=== PATIENT | female | born 1960 | race Caucasian/White ===

== ENCOUNTER 2020-01-13 08:12 | Outpatient (REF) | payer OTHER, SELFPAY ==
[2020-01-13 10:52] LABS: Cholesterol 212 mg/dL; Glucose Fasting 93 mg/dL (60-99); HDL Cholesterol 46 mg/dL; LDL Cholesterol Calculated 131 mg/dl; Triglycerides 176 mg/dL
== END 2020-01-13 08:13 | disposition home or self-care (01) ==
LOC: HO.10HDL 08:12
PROVIDERS: Visit Provider Family Medicine
DX: E78.00 Pure hypercholesterolemia, unspecified (principal)
CPT/HCPCS: 80061; 82947

== ENCOUNTER 2020-03-11 08:37 | Outpatient (REF) | payer OTHER, SELFPAY ==
--- NOTE | 2020-03-11 08:42 | MM_ITS ---
EXAMINATION: MM SCREENING DIGITAL BREAST TOMOSYNTHESIS, BILATERAL CLINICAL INFORMATION: Screening. Asymptomatic. The lifetime risk of breast cancer based on the Tyrer-Cuzick Model is 4%. COMPARISON: Mammography: 10/30/2018, 10/28/2014 TECHNIQUE: Digital breast tomosynthesis is performed in both the craniocaudal and mediolateral oblique views along with computer-aided detection (CAD). Synthesized 2D images are generated from the tomosynthesis. FINDINGS: The breasts are heterogeneously dense, which may obscure small masses (ACR BI-RADS breast composition Category c). Fibronodular parenchymal pattern is similar to prior studies. There is no interval mass or architectural abnormality. No abnormal calcifications. The axilla and skin contours are unremarkable. There are no significant changes from prior exams. MM/MM tomosynthesis screening BI IMPRESSION: No mammographic evidence of malignancy. ASSESSMENT: BI-RADS 1: Negative RECOMMENDATION: Routine annual mammography screening. This patient's information was entered into a reminder system with a target due date for their next mammogram.
== END 2020-03-11 08:38 | disposition home or self-care (01) ==
LOC: HO.MAMMO 08:37
PROVIDERS: PCP Family Medicine; Visit Provider Family Medicine
DX: Z12.31 Encounter for screening mammogram for malignant neoplasm of breast (principal)
CPT/HCPCS: 77063; 77067

== ENCOUNTER 2020-10-05 06:05 | Outpatient (REF) | payer OTHER, SELFPAY ==
[2020-10-05 07:52] LABS: Anion Gap 12 (12-20); Blood Urea Nitrogen 11 mg/dL (9-16); Carbon Dioxide 26 mmol/L (22-29); Chloride 108 mmol/L (96-108); Cholesterol 206 mg/dL; Estimated Glomerular Filt Rate > 60; HDL Cholesterol 42 mg/dL; LDL Cholesterol Calculated 133 mg/dl; Potassium 4.5 mmol/L (3.3-5.1); Sodium 141 mmol/L (135-145); Triglycerides 155 mg/dL
== END 2020-10-05 06:06 | disposition home or self-care (01) ==
LOC: HO.LAB 06:05
PROVIDERS: PCP Family Medicine; Visit Provider Family Medicine
DX: I10 Essential (primary) hypertension (principal); E78.00 Pure hypercholesterolemia, unspecified
CPT/HCPCS: 36415; 80051; 80061; 82565; 84520

== ENCOUNTER 2021-05-03 07:49 | Outpatient (REF) | payer OTHER, SELFPAY ==
[2021-05-03 10:29] LABS: Anion Gap 15 (12-20); Blood Urea Nitrogen 14 mg/dL (9-16); Carbon Dioxide 23 mmol/L (22-29); Chloride 107 mmol/L (96-108); Estimated Glomerular Filt Rate > 60; Potassium 4.3 mmol/L (3.3-5.1); Sodium 141 mmol/L (135-145)
== END 2021-05-03 07:50 | disposition home or self-care (01) ==
LOC: HO.10HDL 07:49
PROVIDERS: Visit Provider Family Medicine
DX: I10 Essential (primary) hypertension (principal)
CPT/HCPCS: 36415; 80051; 82565; 84520

== ENCOUNTER 2021-05-21 07:22 | Outpatient (REF) | payer OTHER, SELFPAY ==
--- NOTE | ~2021-05-21 | MM_ITS ---
EXAMINATION: MM SCREENING DIGITAL BREAST TOMOSYNTHESIS, BILATERAL CLINICAL INFORMATION: Screening. Asymptomatic. The lifetime risk of breast cancer based on the Tyrer-Cuzick Model is 5%. COMPARISON: Mammography: 03/11/2020, 10/30/2018, 10/28/2014 TECHNIQUE: Digital breast tomosynthesis is performed in both the craniocaudal and mediolateral oblique views along with computer-aided detection (CAD). Synthesized 2D images are generated from the tomosynthesis. FINDINGS: The breasts are heterogeneously dense, which may obscure small masses (ACR BI-RADS breast composition Category c). There are no significant masses, abnormal calcifications, or other abnormalities. There is a fibronodular parenchymal pattern similar to prior studies. No developing density or interval architectural changes. No significant changes from prior studies. MM/MM tomosynthesis screening BI IMPRESSION: No mammographic evidence of malignancy. ASSESSMENT: BI-RADS 1: Negative RECOMMENDATION: Routine annual mammography screening. This patient's information was entered into a reminder system with a target due date for their next mammogram.
== END 2021-05-21 07:23 | disposition home or self-care (01) ==
LOC: HO.MAMMO 07:22
PROVIDERS: Visit Provider Family Medicine
DX: Z12.31 Encounter for screening mammogram for malignant neoplasm of breast (principal)
CPT/HCPCS: 77063; 77067

== ENCOUNTER 2021-06-30 06:22 | Outpatient (REF) | payer OTHER, SELFPAY ==
--- NOTE | ~2021-06-30 | XR_ITS ---
EXAMINATION: XR HIP, RIGHT CLINICAL INFORMATION: Right hip pain COMPARISON: None TECHNIQUE: Two views of the right hip. FINDINGS: Bone alignment is normal. No fracture or dislocation is seen. The the joint space is normal. Soft tissues are normal. XR/XR hip RT min 2V IMPRESSION: Normal right hip.
== END 2021-06-30 06:23 | disposition home or self-care (01) ==
LOC: HO.XRAY 06:22
PROVIDERS: PCP Family Medicine; Visit Provider Family Medicine
DX: M25.551 Pain in right hip (principal)
CPT/HCPCS: 73502

== ENCOUNTER 2021-09-08 10:30 | Outpatient (REF) | payer OTHER, SELFPAY ==
[2021-09-08 11:19] LABS: Appearance Urine HAZY; Color Urine STRAW; Glucose Urine UA NEG (NEG); Leukocyte Esterase Urine 3+ (NEG); Nitrite Urine NEG (NEG); Specific Gravity - Urine <= 1.005 (1.005-1.025); Urine Blood 3+ (NEG); Urine Ketones NEG (NEG); Urine Protein NEG (NEG-TRACE)
[2021-09-08 11:30] LABS: Bacteria Urine 2+ /LPF; Squamous Epithelial Cell Urine 1+ /LPF
[2021-09-08 11:31] LABS: Mucus Urine TRACE /LPF
== END 2021-09-08 10:31 | disposition home or self-care (01) ==
LOC: HO.LAB 10:30
PROVIDERS: PCP Family Medicine; Visit Provider Family Medicine
DX: R30.9 Painful micturition, unspecified (principal)
CPT/HCPCS: 81001; 87086; 87088; 87186

== ENCOUNTER 2021-10-31 06:25 | Outpatient (REF) | payer OTHER, SELFPAY ==
[2021-10-31 08:40] LABS: Anion Gap 15 (12-20); Blood Urea Nitrogen 15 mg/dL (9-16); Carbon Dioxide 27 mmol/L (22-29); Chloride 103 mmol/L (96-108); Estimated Glomerular Filt Rate > 60; Potassium 4.1 mmol/L (3.3-5.1); Sodium 141 mmol/L (135-145)
== END 2021-10-31 06:26 | disposition home or self-care (01) ==
LOC: HO.LAB 06:25
PROVIDERS: PCP Family Medicine; Visit Provider Family Medicine
DX: I10 Essential (primary) hypertension (principal)
CPT/HCPCS: 36415; 80051; 82565; 84520

== ENCOUNTER 2022-01-17 06:24 | Outpatient (REF) | payer OTHER, SELFPAY ==
--- NOTE | ~2022-01-17 | XR_ITS ---
EXAMINATION: XR LUMBOSACRAL SPINE CLINICAL INFORMATION: Right sciatica. COMPARISON: None. TECHNIQUE: Three views of the lumbosacral spine. FINDINGS: There is normal lumbar lordosis. The vertebral heights, alignment and disc heights are normal. No visible acute fracture, dislocation or subluxation seen. There is a right L5-S1 facet joint arthropathy. There is no lytic process. The paravertebral soft tissues are normal. XR/XR lumbar spine 2-3V IMPRESSION: Right L5-S1 facet joint arthropathy. No visible acute fracture, dislocation or lytic process seen.
== END 2022-01-17 06:25 | disposition home or self-care (01) ==
LOC: HO.XRAY 06:24
PROVIDERS: PCP Family Medicine; Visit Provider Family Medicine
DX: M54.31 Sciatica, right side (principal)
CPT/HCPCS: 72100

== ENCOUNTER 2022-03-07 07:43 | Outpatient (REF) | payer OTHER, SELFPAY ==
--- NOTE | 2022-03-07 | PFT_ITS ---
Forced vital capacity 77%, FEV1 75%, FEV1 over FVC ratio is 75. FEF 25/75 is 62% and MVV 70%. Post bronchodilator therapy, there is a significant improvement in FEF25/75. Total lung capacity 95%. Residual volume 114%. Diffusion capacity 69%. CONCLUSION: There is a very mild degree of small airway obstructive disorder, which improves after bronchodilator therapy to normal level. This finding indicates that patient may have mild bronchial asthma. For this, clinical correlation is recommended. MD ARETHA Larry/NAYLA / [phone]
== END 2022-03-07 07:44 | disposition home or self-care (01) ==
LOC: HO.RESP 07:43
PROVIDERS: PCP Family Medicine; Visit Provider Family Medicine
DX: J44.9 Chronic obstructive pulmonary disease, unspecified (principal)
CPT/HCPCS: 94060; 94727; 94729

== ENCOUNTER 2022-05-26 14:29 | Outpatient (REF) | payer OTHER, SELFPAY ==
--- NOTE | ~2022-05-26 | CT_ITS ---
EXAMINATION: LUNG CANCER SCREENING CT CHEST WITHOUT CONTRAST CLINICAL INFORMATION: Former smoker with 45 pack year history, quit 1 year ago COMPARISON: None TECHNIQUE: Multidetector volumetric CT imaging of the chest was obtained noncontrast using low dose screening CT technique. Axial thin section 0.625 mm reformations in soft tissue and lung windows were obtained. Sagittal and coronal reformations were obtained. Axial MIP images were also created and reviewed. This CT examination was performed using dose optimization techniques as appropriate, variously including the following: *Automated exposure control *Adjustment of mA and/or kV according to patient size (this includes techniques or standardized protocols for targeted exams where dose is matched to indication/reason for exam; i.e. extremities or head) *Use of iterative reconstruction technique TOTAL EXAM DLP: 33 mGy-cm. FINDINGS: PULMONARY NODULES: No suspicious pulmonary nodules. There are a few scattered pulmonary nodules measuring less than 4 mm (see rutherford images). LUNGS / PLEURA: Moderate centrilobular paraseptal emphysema. Diffuse moderate bronchial thickening and mild cylindrical bronchiectasis. Scattered endobronchial secretions predominating within the dependent segments of the lower lobes bilaterally. No pleural effusion or pneumothorax. MEDIASTINUM / IZAIAH: Heart normal in size without pericardial effusion. Great vessels normal caliber. No lymphadenopathy. Coronary calcifications present. Imaged thyroid gland unremarkable. CHEST WALL / AXILLA: Unremarkable. UPPER ABDOMEN: Included portions grossly unremarkable allowing for limitations in technique. OSSEOUS STRUCTURES: No acute or suspicious osseous abnormalities. CT/CT lung screening IMPRESSION: * No evidence of pulmonary malignancy. * There are no pulmonary nodules that meet criteria for short interval follow-up at this time. * Moderate emphysema and bronchitis which may be chronic in this patient. ASSESSMENT: Lung RADS category: 2. Benign appearance or behavior. Nodules with a very low likelihood of becoming a clinically active cancer due to size or lack of growth. Continue annual screening with low-dose CT in 12 months. Probability of malignancy less than 1%. INCIDENTAL FINDINGS (S CATEGORY): None. RECOMMENDATION: Follow up low dose CT chest in 1 year.
== END 2022-05-26 14:30 | disposition home or self-care (01) ==
LOC: HO.CT 14:29
PROVIDERS: PCP Family Medicine; Visit Provider Physician Assistant Medical
DX: Z12.2 Encounter for screening for malignant neoplasm of respiratory organs (principal); Z87.891 Personal history of nicotine dependence
CPT/HCPCS: 71271; G0296

== ENCOUNTER 2022-06-02 07:40 | Outpatient (REF) | payer OTHER, SELFPAY ==
[2022-06-02 08:14] LABS: COVID-19 Test Negative (Negative); IDNOW Serial# 08D9AD1C
== END 2022-06-02 07:41 | disposition home or self-care (01) ==
LOC: HO.LAB 07:40
PROVIDERS: PCP Family Medicine; Visit Provider Internal Medicine
DX: Z20.822 Contact with and (suspected) exposure to COVID-19 (principal)
CPT/HCPCS: 87635; C9803

== ENCOUNTER 2022-06-03 07:19 | Outpatient (REF) | payer OTHER, SELFPAY ==
--- NOTE | ~2022-06-03 | MM_ITS ---
EXAMINATION: MM SCREENING DIGITAL BREAST TOMOSYNTHESIS, BILATERAL CLINICAL INFORMATION: Screening. Asymptomatic. The lifetime risk of breast cancer based on the Tyrer-Cuzick Model is 5%. COMPARISON: Mammography: 05/21/2021, 03/11/2020, 10/30/2018 TECHNIQUE: Digital breast tomosynthesis is performed in both the craniocaudal and mediolateral oblique views along with computer-aided detection (CAD). Synthesized 2D images are generated from the tomosynthesis. Additional exaggerated left CC view is provided. FINDINGS: The breasts are heterogeneously dense, which may obscure small masses (ACR BI-RADS breast composition Category c). There is fibronodular parenchymal pattern. No significant mass or architectural abnormality or developing density. No abnormal calcifications. The axilla and skin contours are unremarkable. No significant changes from prior studies. MM/MM tomosynthesis screening BI IMPRESSION: No mammographic evidence of malignancy. ASSESSMENT: BI-RADS 2: Benign RECOMMENDATION: Routine annual mammography screening. This patient's information was entered into a reminder system with a target due date for their next mammogram.
[2022-06-03 09:00] LABS: Anion Gap 16 (12-20); Blood Urea Nitrogen 11 mg/dL (9-16); Carbon Dioxide 24 mmol/L (22-29); Chloride 108 mmol/L (96-108); Estimated Glomerular Filt Rate > 60; Potassium 4.1 mmol/L (3.3-5.1); Sodium 144 mmol/L (135-145)
== END 2022-06-03 07:20 | disposition home or self-care (01) ==
LOC: HO.MAMMO 07:19
PROVIDERS: Visit Provider Family Medicine
DX: Z12.31 Encounter for screening mammogram for malignant neoplasm of breast (principal); I10 Essential (primary) hypertension
CPT/HCPCS: 36415; 77063; 77067; 80051; 82565; 84520

== ENCOUNTER 2023-04-14 08:00 | Outpatient (REF) | payer OTHER, SELFPAY ==
[2023-04-14 10:10] LABS: Anion Gap 12 (12-20); Blood Urea Nitrogen 17 mg/dL (9-16); Carbon Dioxide 25 mmol/L (22-29); Chloride 108 mmol/L (96-108); Estimated Glomerular Filt Rate > 60; Potassium 4.4 mmol/L (3.3-5.1); Sodium 141 mmol/L (135-145)
== END 2023-04-14 08:01 | disposition home or self-care (01) ==
LOC: HO.LAB 08:00
PROVIDERS: PCP Family Medicine; Visit Provider Family Medicine
DX: I10 Essential (primary) hypertension (principal)
CPT/HCPCS: 36415; 80051; 82565; 84520

== ENCOUNTER 2023-06-09 07:28 | Outpatient (REF) | payer OTHER, SELFPAY | END 2023-06-09 07:29 | disposition home or self-care (01) | LOC: HO.MAMMO 07:28 | PROVIDERS: PCP Family Medicine; Visit Provider Family Medicine | DX: Z12.31 Encounter for screening mammogram for malignant neoplasm of breast (principal) | CPT/HCPCS: 77063; 77067 ==

== ENCOUNTER → 2023-06-09 07:45 | Outpatient (BNV) | payer OTHER, SELFPAY | PROVIDERS: PCP Family Medicine; Visit Provider Radiology Diagnostic Radiology | DX: Z12.31 Encounter for screening mammogram for malignant neoplasm of breast (principal) | CPT/HCPCS: 77063; 77067 ==

== ENCOUNTER 2023-09-04 08:55 | Outpatient (AMB) | payer OTHER, SELFPAY ==
--- NOTE | 2023-09-04 08:58 | MHC.OFFVIS ---
Vital Signs 09/04/23 09:01 Height 5 ft 5 in Weight 129 lb BMI 21.5 BP 166/77 H Blood Pressure Location Rt brachial Position Sitting Pulse 86 Intake Visit Reasons: groin hernia Intake Note: Patient referred by pcp Dr. Mahmood for groin hernia X3m. Patient c/o: denies pain or discomfort. Has noticed bulging on LLQ. Box Office Attendant Required: No Accompanied by: Self / Same As Patient Allergies No Known Allergies Allergy (Unverified 09/04/23 09:03) HPI Comments Details: Patient presents for evaluation of right groin swelling which he has had for a proximally 3 months time. His increasing in size, become more symptomatic. Patient does moderate lifting at her place of employment. She has no other GI issues or complaints. She has tolerating a diet. She is regular bowel habits. Her activities are moderately limited because of this hernia. Chart was reviewed and patient evaluated [facility] Medical History Hypertension Personal history of nicotine dependence Surgical History History of tonsillectomy History of repair of right rotator cuff History of colonoscopy Social History Alcohol intake: current Alcohol intake frequency: a few times a month Patient Tobacco Use Status: Former Tobacco user Years Smoked: (former smoker - onset 17yo, 1ppd x 43yrs, 40pyh - quit 2020) Physical Exam Vital Signs: Last Vital Signs Pulse 86 09/04/23 09:01 BP 166/77 H 09/04/23 09:01 BMI result Body Mass Index 21.5 Chest Other: Chest breath sounds bilaterally, HS 1 in 2 GI Other: Patient was examined both supine and standing with Valsalva. Left groin negative. Abdomen benign. Moderately sized reducible right femoral hernia. No obvious inguinal hernia demonstrated. Assessment & Plan Assessment & Plan (1) Right groin hernia: Code(s): K40.90 - Unilateral inguinal hernia, without obstruction or gangrene, not specified as recurrent Category: Surgical Plan Risks, benefits, and alternatives of open right femoral hernia repair with mesh were reviewed with the patient and included but not limited to bleeding, infection, recurrence , numbness, pain, scarring and the patient wishes to proceed. All questions answered. Arrangements were made for this. Coding Level of Care Code New Pt Level 5 (40504) Diagnoses Right groin hernia K40.90
[2023-09-04 09:01] VITALS: BP 166/77; PULSE 86; BMI 21.5
== END 2023-09-04 09:13 | disposition home or self-care (01) ==
PROVIDERS: PCP Family Medicine; Visit Provider Surgery
DX: K40.90 Unilateral inguinal hernia, without obstruction or gangrene, not specified as recurrent (principal)
CPT/HCPCS: 99204

== ENCOUNTER → 2023-09-04 08:55 | Outpatient (BNVA) | payer OTHER, SELFPAY | PROVIDERS: PCP Family Medicine; Visit Provider Surgery ==

== ENCOUNTER 2023-09-05 09:43 | Outpatient (REF) | payer OTHER, SELFPAY ==
--- NOTE | ~2023-09-05 | US_ITS ---
EXAMINATION: US EXTRACRANIAL CAROTID DUPLEX, BILATERAL CLINICAL INFORMATION: Carotid bruit COMPARISON: None available. TECHNIQUE: Real-time ultrasound and Doppler techniques (integrating B-mode 2-D vascular images, Doppler spectral analysis and color-flow Doppler imaging) were utilized to interrogate the extracranial carotid arteries, the vertebral arteries and proximal subclavian arteries bilaterally. The degree of stenosis is determined by criteria similar to NASCET. FINDINGS: Right Side: 1. There is no significant atherosclerotic plaque seen in the bifurcation/proximal ICA region. 2. The common carotid artery PSV proximally is 84 cm/s and distally 56 cm/s. 3. The proximal internal carotid artery velocities are 77 cm/s systolic and 15 cm/s diastolic. 4. The proximal external carotid artery PSV is 77 cm/s. 5. The vertebral artery shows antegrade flow. 6. The subclavian artery waveforms are normal. Left Side: 1. There is mild atherosclerotic plaque seen in the bifurcation/proximal ICA region. 2. The common carotid artery PSV proximally is 127 cm/s and distally 64 cm/s. 3. The proximal internal carotid artery velocities are 120 cm/s systolic and 33 cm/s diastolic. 4. The proximal external carotid artery PSV is 72 cm/s. 5. The vertebral artery shows antegrade flow. 6. The subclavian artery waveforms are normal. US/US carotid duplex BI IMPRESSION: 1. RIGHT: Normal right internal carotid artery without atherosclerotic plaque or hemodynamically significant stenosis. 2. LEFT: Minimal, non-hemodynamically significant stenosis of the proximal left internal carotid artery corresponding to a 0-49% stenosis by velocity criteria.
== END 2023-09-05 09:44 | disposition home or self-care (01) ==
LOC: HO.US 09:43
PROVIDERS: PCP Family Medicine; Visit Provider Family Medicine
DX: R09.89 Other specified symptoms and signs involving the circulatory and respiratory systems (principal)
CPT/HCPCS: 93880

== ENCOUNTER 2023-10-18 08:53 | Day surgery (SDC) | payer OTHER, SELFPAY ==
[2023-10-16 07:14] VITALS: BMI 21.5
--- NOTE | 2023-10-17 17:57 | MHC.SHP ---
Pre-Procedural Eval Section A - 24 Hr Update-Section A only Date of Service: 10/18/23 The patient is an INPATIENT: No Changes since office visit: No Cold of Flu in the past 2 weeks, No New Medical Problems, No Changes in Medication and No Patient answered all questions Section B - Complete if H&P > 30 days Chief Complaint: Unilateral inguinal hernia, without obstruction or Allergies: Allergies Allergy/AdvReac Type Severity Reaction Status Date / Time No Known Allergies Allergy Unverified 09/04/23 09:03 Plan I have reviewed the history and physical and performed a pertinent physical examination on my patient. No changes have occurred unless specified. Time Spent With Patient Time: Total time managing care of this patient today ____ minutes.
[2023-10-18 09:21] VITALS: BMI 21.6
[2023-10-18] MEDS: Lactated Ringers 1,000 ML 100 ML IVCONT (09:31)
[2023-10-18 09:54] VITALS: BP 133/55; PULSE 63; RESP 18; TEMP 36.7; O2SAT 96
--- NOTE | 2023-10-18 10:15 | P.CONAN_ITS ---
Documented by User: Angeles Morales NP 10/17/23 09:11 HPI - Anesthesia Eval Consult details Narrative: 63yo F for Right Open Repair Hernia Femoral with mesh [facility] Active Problems Active Problems: All Active Problems Right groin hernia (Acute) Hypertension (Acute) Personal history of nicotine dependence (Acute) Past Medical History Medical History Hypertension Personal history of nicotine dependence Surgical History Surgical History History of tonsillectomy History of repair of right rotator cuff History of colonoscopy Social History Social History Alcohol intake: current Alcohol intake frequency: a few times a month Patient Tobacco Use Status: Current someday Tobacco user Tobacco use type: Cigarette Years Smoked: (former smoker - onset 17yo, 1ppd x 43yrs, 40pyh - quit 2020) Smoked in Last 30 Days: Yes Patient Interested in Nicotine Replacement: No Are you DNR?: No Advance Directives: No Advance Directives Information Provided: Yes Nutrition Risks: No Nutritional Risk Meds Allergies Allergy/AdvReac Type Severity Reaction Status Date / Time No Known Allergies Allergy Verified 10/18/23 09:13 Home Medications ?Medication ?Instructions ?Recorded ?Confirmed ?Last Taken ?Type amlodipine 10 mg tablet 10 mg PO DAILY 09/04/23 10/18/23 Unknown History losartan 50 mg tablet 50 mg PO DAILY 09/04/23 10/18/23 Unknown History Exam Height,Weight and Vital Signs: Height 5 ft 5 in Weight 58.513 kg Pertinent Lab Results Pertinent Lab Results: Laboratory Tests 04/14/23 08:31 Sodium 141 Potassium 4.4 Chloride 108 Carbon Dioxide 25 BUN 17 H Creatinine 0.66 Assessment and Plan Assessment Anesthesia Assessment: Chart Reviewed Documented by User: Nafisa Andrade DO 10/18/23 10:16 PMFSH Past Medical History Medical History Hypertension Personal history of nicotine dependence Family History Family history of problems with anesthesia: No Surgical History Surgical History History of tonsillectomy History of repair of right rotator cuff History of colonoscopy History of Problems with Anesthesia: No Social History Social History Alcohol intake: current Alcohol intake frequency: a few times a month Patient Tobacco Use Status: Current someday Tobacco user Tobacco use type: Cigarette Years Smoked: (former smoker - onset 17yo, 1ppd x 43yrs, 40pyh - quit 2020) Smoked in Last 30 Days: Yes Patient Interested in Nicotine Replacement: No Are you DNR?: No Advance Directives: No Advance Directives Information Provided: Yes Nutrition Risks: No Nutritional Risk Meds Allergies Allergy/AdvReac Type Severity Reaction Status Date / Time No Known Allergies Allergy Verified 10/18/23 09:13 Home Medications ?Medication ?Instructions ?Recorded ?Confirmed ?Last Taken ?Type amlodipine 10 mg tablet 10 mg PO DAILY 09/04/23 10/18/23 Unknown History losartan 50 mg tablet 50 mg PO DAILY 09/04/23 10/18/23 Unknown History Exam Exam Date and Time: October 18, 2023 1010 Height,Weight and Vital Signs: Height 5 ft 5 in Weight 58.513 kg Vital Signs Temperature 98.1 F 10/18/23 09:54 Pulse Rate 63 10/18/23 09:54 Respiratory Rate 18 10/18/23 09:54 Blood Pressure 133/55 L 10/18/23 09:54 Pulse Oximetry 96 10/18/23 09:54 Oxygen Delivery Method Room Air 10/18/23 09:54 Temperature 98.1 F 10/18/23 09:54 Pulse Rate 63 10/18/23 09:54 Respiratory Rate 18 10/18/23 09:54 Blood Pressure 133/55 L 10/18/23 09:54 Pulse Oximetry 96 10/18/23 09:54 Oxygen Delivery Method Room Air 10/18/23 09:54 Airway Mallampati Class: I TM Dist: <=3cm Neck ROM: Limited Partial: Upper Heart: S1S2 Lungs: CTAB Assessment and Plan Assessment Anesthesia Assessment: Anesthesia Plan Discussed and Chart Reviewed Final Anesthetic Review Family History of Problems with Anesthesia: No History of Problems with Anesthesia: No NPO: Yes ASA Class: II Final Preanesthetic Review: No Changes in Pt Med Stat, Meds/Allgs Chart Reviewed, Consent Obtained/Reviewed and Anes Risks/Benef Reviewed Patient Risk: Low Procedure Risk: Low Anesthetic Plan Anesthetic Plan: MAC: and Agree w/ Assess. and Plan Disposition: Standard PACU
[2023-10-18 11:17] VITALS: BP 108/50; PULSE 70; RESP 16; TEMP 36.7; O2SAT 96
--- NOTE | 2023-10-18 11:17 | P.OP_ITS ---
Operative Note Operative Note Date of Service: 10/18/23 Narrative: Preoperative diagnosis: [] symptomatic right femoral hernia Postop diagnosis: [] The same Procedure [] open right femoral herniorrhaphy with Bard mesh Surgeon: [] Juan Ammonium Nitrate Neutralizer: [] Type of Anesthesia: [] MAC Indication for surgery: [] Incarcerated right femoral hernia with omental contents Findings: [] Patient brought to the operating room, placed on operative table in supine position, after an adequate level of MAC anesthesia was induced, the right groin was prepped and draped in usual sterile fashion. Using a small right infra inguinal transverse incision over the femoral hernia site, this carried down through skin, subcutaneous tissue, where hernia sac was identified and circumferentially dissected down to the femoral canal. Sac was dissected from the surrounding tissue and was reduced. Repair was accomplished by patient a Bard mesh in the defect and suturing this superiorly to the inguinal ligament, medially to the conjoined tendon, and inferiorly to the happened necrotic muscle tissue. At completion of procedure, mesh was in good position with no tension and no compromise to the femoral vein.. Wound was irrigated, and secured hemostasis. Wound was closed in the following manner; Farnaz's fascia was reapproximated using interrupted 3-0 Vicryl suture. Skin was closed using interrupted inverted dermal 3-0 Vicryl sutures followed by Steri-Strips sterile dressings. Wound was infiltrated at the beginning and at the end with 0.5% Marcaine/1% lidocaine. Sponge, needle, and instrument counts reported correct. Patient tolerated the procedure well and emerged from anesthesia stable condition. EBL minimal
[2023-10-18 11:32] VITALS: BP 123/62; PULSE 64; RESP 17; O2SAT 99
[2023-10-18 11:47] VITALS: BP 124/64; PULSE 67; RESP 18; TEMP 36.3; O2SAT 98
== END 2023-10-18 12:11 | disposition home or self-care (01) ==
PROVIDERS: PCP Family Medicine; Visit Provider Surgery
PROC: (CPT 49553; principal; 2023-10-18 10:30)
DX: K41.30 Unilateral femoral hernia, with obstruction, without gangrene, not specified as recurrent (principal); I10 Essential (primary) hypertension; Z87.891 Personal history of nicotine dependence; Z98.890 Other specified postprocedural states; Z79.899 Other long term (current) drug therapy
CPT/HCPCS: 49553; C1781; J0690; J2250; J2704; J2795; J3010

== ENCOUNTER → 2023-10-18 08:53 | Outpatient (BNV) | payer OTHER, SELFPAY | PROVIDERS: PCP Family Medicine; Visit Provider Surgery | DX: K41.90 Unilateral femoral hernia, without obstruction or gangrene, not specified as recurrent (principal) | CPT/HCPCS: 49550 ==

== ENCOUNTER 2023-10-24 09:46 | Outpatient (AMB) | payer OTHER, SELFPAY ==
--- NOTE | 2023-10-24 09:51 | A.OFFVIS_ITS ---
Intake Visit Reasons: S/P Rt. femoral hernia w/mesh Intake Note: Patient here s/p R femoral hernia w/mesh. Reports incisions healing well. Patient c/o: tenderness. Never took rx pain meds. SX: 10-18-2023. Autistic Teacher Required: No Accompanied by: Self / Same As Patient Allergies No Known Allergies Allergy (Verified 10/24/23 09:53) HPI Comments Details: Patient presents for follow-up status post right femoral hernia repair. She is doing quite well. She is starting a diet. He is having regular bowel habits. She is increasing her activity level. She has minimal incisional discomfort. [facility] Medical History Hypertension Personal history of nicotine dependence Surgical History (Updated 10/24/23 @ 10:02 by Denzel Martinez MD) Right groin hernia (10/18/23) History of tonsillectomy History of repair of right rotator cuff History of colonoscopy Social History Alcohol intake: current Alcohol intake frequency: a few times a month Comment: COUNTS CORRECT Patient Tobacco Use Status: Current someday Tobacco user Tobacco use type: Cigarette Years Smoked: (former smoker - onset 17yo, 1ppd x 43yrs, 40pyh - quit 2020) Physical Exam GI Other: Abdomen is soft. Wound clean dry and intact healing very well. Resolving mild ecchymosis. No evidence of any infection. Assessment & Plan Assessment & Plan (1) Status post hernia repair: Code(s): Z98.890 - Other specified postprocedural states; Z87.19 - Personal history of other diseases of the digestive system Category: Medical Plan Patient has been given very specific local instructions including avoiding strenuous activities for next few weeks time and will otherwise follow-up p.r.n.. All questions answered. Coding Level of Care Code Global (83885) Diagnoses Status post hernia repair Z98.890; Z87.19
== END 2023-10-24 09:57 | disposition home or self-care (01) ==
PROVIDERS: PCP Family Medicine; Visit Provider Surgery
DX: Z98.890 Other specified postprocedural states (principal); Z87.19 Personal history of other diseases of the digestive system
CPT/HCPCS: 99024

== ENCOUNTER → 2023-10-24 09:46 | Outpatient (BNVA) | payer OTHER, SELFPAY | PROVIDERS: PCP Family Medicine; Visit Provider Surgery ==

== ENCOUNTER 2023-11-14 07:59 | Outpatient (AMB) | payer OTHER, SELFPAY ==
--- NOTE | 2023-11-14 08:07 | MHC.OFFVIS ---
Vital Signs 11/14/23 08:10 Height 5 ft 5 in Weight 129 lb BMI 21.5 BP 158/77 H Blood Pressure Location Rt brachial Position Sitting Pulse 86 Intake Visit Reasons: ? infection, wound check s/p hernia repair Intake Note: Patient here wound check along hernia scarline. Patient c/o: mild oozing, inflammation. Financial Data Analyst Required: No Accompanied by: Self / Same As Patient Allergies No Known Allergies Allergy (Verified 11/14/23 08:11) HPI Comments Details: Patient presents for wound evaluation. She has extruding a suture and had some drainage. No other issues or complaints. She is tolerating a diet. Having regular bowel habits. She is increasing her activity level to baseline. ON LICENSE OF [facility] Medical History Hypertension Personal history of nicotine dependence Surgical History Right groin hernia (10/18/23) History of tonsillectomy History of repair of right rotator cuff History of colonoscopy Social History Alcohol intake: current Alcohol intake frequency: a few times a month Comment: COUNTS CORRECT Patient Tobacco Use Status: Current someday Tobacco user Tobacco use type: Cigarette Years Smoked: (former smoker - onset 17yo, 1ppd x 43yrs, 40pyh - quit 2020) Physical Exam Vital Signs: Last Vital Signs Pulse 86 11/14/23 08:10 BP 158/77 H 11/14/23 08:10 BMI result Body Mass Index 21.5 GI Other: Incision demonstrates a small stitch abscess which was uneventfully removed. Very superficial. Bacitracin and dressing were applied. Assessment & Plan Assessment & Plan (1) Postoperative stitch abscess: Code(s): T81.41XA - Infection following a procedure, superficial incisional surgical site, initial encounter Category: Surgical Plan Patient was been given local instructions including bacitracin each day after showering with a Band-Aid and will otherwise follow-up p.r.n.. All questions answered. Coding Level of Care Code Global (12350) Diagnoses Postoperative stitch abscess T81.41XA
[2023-11-14 08:10] VITALS: BP 158/77; PULSE 86; BMI 21.5
== END 2023-11-14 08:12 | disposition home or self-care (01) ==
PROVIDERS: PCP Family Medicine; Visit Provider Surgery
DX: T81.41XA Infection following a procedure, superficial incisional surgical site, initial encounter (principal)
CPT/HCPCS: 99024

== ENCOUNTER → 2023-11-14 07:59 | Outpatient (BNVA) | payer OTHER, SELFPAY | PROVIDERS: PCP Family Medicine; Visit Provider Surgery ==

== ENCOUNTER 2023-12-08 07:15 | Outpatient (REF) | payer OTHER, SELFPAY ==
[2023-12-08 08:25] LABS: Anion Gap 11 (12-20); Blood Urea Nitrogen 18 mg/dL (9-16); Carbon Dioxide 24 mmol/L (22-29); Chloride 112 mmol/L (96-108); Estimated Glomerular Filt Rate > 60; Potassium 4.3 mmol/L (3.3-5.1); Sodium 143 mmol/L (135-145)
== END 2023-12-08 07:16 | disposition home or self-care (01) ==
LOC: HO.LAB 07:15
PROVIDERS: PCP Family Medicine; Visit Provider Family Medicine
DX: I10 Essential (primary) hypertension (principal)
CPT/HCPCS: 36415; 80051; 82565; 84520

== ENCOUNTER 2024-06-14 07:20 | Outpatient (REF) | payer OTHER, SELFPAY | END 2024-06-14 07:21 | disposition home or self-care (01) | LOC: HO.MAMMO 07:20 | PROVIDERS: PCP Family Medicine; Visit Provider Family Medicine | DX: Z12.31 Encounter for screening mammogram for malignant neoplasm of breast (principal) | CPT/HCPCS: 77063; 77067 ==

== ENCOUNTER → 2024-06-14 07:30 | Outpatient (BNV) | payer OTHER, SELFPAY | PROVIDERS: PCP Family Medicine; Visit Provider Internal Medicine | DX: Z12.31 Encounter for screening mammogram for malignant neoplasm of breast (principal) | CPT/HCPCS: 77063; 77067 ==

== ENCOUNTER 2024-07-23 14:45 | Outpatient (REF) | payer OTHER, SELFPAY ==
--- NOTE | ~2024-07-23 | CT_ITS ---
CLINICAL HISTORY: Z87.891 - Personal history of nicotine dependence CT lung cancer screening (LDCT) Comparison: None Technique: Axial CT images of the chest using low-dose technique. Referring provider counseled the patient on shared decision-making for LDCT screening. Additional counseling was provided on smoking cessation. Effective radiation dose total: DLP 23.4 mGycm, CTDIvol 0.8 mGy. Findings: There is mild centrilobular and paraseptal emphysema. 4 mm nodule is seen in the left upper lobe. This is best seen on image number 19 of series number 5. Ill-defined irregular 6 mm nodule is seen in the left lower lobe on image number 44. 4 mm nodule is seen in the right lower lobe on image number 36. 3 mm nodule is seen in the right upper lobe on image number 21. There are mild coronary artery calcifications. Limited upper abdomen: Unremarkable Other: None Impression: LungRADS 3 - Probably benign: Recommend low dose screening Chest CT in 6 months. ##L3# Category 1: Normal; continue annual screening Category 2: Benign appearance or behavior, continue annual screening Category 3: Probably benign, [address] recommended Category 4A: Suspicious, [address] recommended; may consider PET/CT Category 4B: Suspicious, Additional diagnostics and/or tissue sampling recommended Category 4X: Suspicious, Additional diagnostics and/or tissue sampling recommended Category 0: Recalls (incomplete screen due to Incomplete coverage, Noise, Respiratory motion, Expiration, Obscured by acute abnormality) This document has been electronically signed by: Yassine Dawn MD on 07/24/2024 11:45:21
== END 2024-07-23 14:46 | disposition home or self-care (01) ==
LOC: HO.CT 14:45
PROVIDERS: PCP Family Medicine; Visit Provider Physician Assistant Medical
DX: Z12.2 Encounter for screening for malignant neoplasm of respiratory organs (principal); Z87.891 Personal history of nicotine dependence
CPT/HCPCS: 71271

== ENCOUNTER → 2024-07-23 14:47 | Outpatient (BNV) | payer OTHER, SELFPAY | PROVIDERS: PCP Family Medicine; Visit Provider Radiology Diagnostic Radiology | DX: Z87.891 Personal history of nicotine dependence (principal) | CPT/HCPCS: 71271 ==

== ENCOUNTER 2024-08-23 07:13 | Outpatient (REF) | payer OTHER, SELFPAY ==
[2024-08-23 07:56] LABS: Anion Gap 12 (12-20); Blood Urea Nitrogen 11 mg/dL (9-16); Carbon Dioxide 26 mmol/L (22-29); Chloride 108 mmol/L (96-108); Estimated Glomerular Filt Rate > 60; Potassium 4.4 mmol/L (3.3-5.1); Sodium 142 mmol/L (135-145)
== END 2024-08-23 07:14 | disposition home or self-care (01) ==
LOC: HO.LAB 07:13
PROVIDERS: PCP Family Medicine; Visit Provider Family Medicine
DX: I10 Essential (primary) hypertension (principal)
CPT/HCPCS: 36415; 80051; 82565; 84520

== ENCOUNTER 2025-01-28 13:54 | Outpatient (AMB) | payer OTHER, SELFPAY ==
--- NOTE | 2025-01-28 14:00 | MHC.PC.OV ---
Vital Signs 01/28/25 14:27 Height 5 ft 4.45 in Weight 60.328 kg BMI 22.5 BP 160/60 H Blood Pressure Location Lt brachial Position Sitting Respiration 18 Pulse 79 Pulse Source Pulse Oximeter Temp 98.3 F Temp Source Temporal Artery Scan Pulse Oximetry (%) 97 Oxygen Delivery Method Room Air Intake Visit Reasons: 6 month follow up-digna pt - see comments Crystalizer Tender Required: No Accompanied by: Self / Same As Patient Allergies No Known Allergies Allergy (Verified 01/28/25 14:01) Medication List - Last Reconciled 01/30/25 by SLICK Sharma amlodipine 10 mg PO DAILY cetirizine (Zyrtec) 10 mg PO DAILY PRN losartan 50 mg PO DAILY Tobacco use date assessed: 01/28/25 Dental Screening Dental Screen Date: 01/28/25 Did you have a dental visit in the last 12 months?: Yes Did you have a dental problem in the last 6 months where you did not have access to dental care?: No Was dental information given to patient?: Patient has dentist HPI HPI Comments History of Present Illness Details 64-year-old female with history of hypertension, pulmonary nodule who is a former smoker presenting to the office today for management of chronic conditions and to establish care. She is a former patient of Dr. Mahmood. Hypertension-blood pressure initially 160/60. On amlodipine 10 mg daily and losartan 50 mg daily, however has been out of the medications Pulmonary nodule/former smoker-following q6m with lung cancer screening, overdue Concerns: None Health maintenance: Last mammogram 06/2024 with 1 year follow-up advised Last colonoscopy 03/2014, 10 year follow-up advised. Dr. Suh. Overdue Due for DEXA scan Due for box order person exam ROS: General: No fevers, malaise, unintentional weight loss HEENT: No blurred vision, diplopia. No sore throat, nasal congestion, rhinorrhea, sinus pain, ear pain Cardiovascular: No chest pain, palpitations, or leg edema Respiratory: No shortness of breath, wheezing, cough GI: No abdominal pain, nausea, vomiting, diarrhea, constipation, melena, hematochezia : No dysuria, hematuria, increased urinary frequency, decreased urinary output MSK: No myalgia, back pain Neuro: No headaches, weakness, paresthesias Skin: No rashes or lesions EXAM: Constitutional - Awake and Alert, No apparent distress Eyes - PERRL Cardiovascular - S1S2, RRR, No edema Respiratory - Normal lung expansion, Normal respiratory effort, No respiratory distress, CTA bilaterally Extremities - no calf tenderness bilaterally, no swelling Skin - Warm/Dry Neurological - Alert & oriented x3 Psychological - Appropriate affect [facility] Medical History (Updated 08/01/24 @ 08:33 by Betsy Espinal PA-C) Hypertension Personal history of nicotine dependence Surgical History (Updated 01/26/25 @ 18:08 by Luz Elena Handy) History of femoral hernia repair History of tonsillectomy History of repair of right rotator cuff History of colonoscopy (~04/10/14) Social History Housing: House Alcohol intake: current Alcohol intake frequency: a few times a month Comment: COUNTS CORRECT Patient Tobacco Use Status: Former Tobacco user Tobacco use type: Cigarette Years Smoked: (former smoker - onset 17yo, 1ppd x 43yrs, 40pyh - quit 2020) e-Cigarette/Vaping Use: Never Used service: No Current occupational status: employed Current occupation: [employer] Alcohol Use Questionnaire (AUDIT-C) 1. How often do you have a drink containing alcohol?: 2-4 times a month 2. How many drinks containing alcohol do you have on a typical day when you are drinking?: 1 or 2 3. How often do you have six or more drinks on one occasion?: Never Total Score: 2 Physical exam (Primary Care) Vital Signs: Last Vital Signs Temp 98.3 F 01/28/25 14:27 Pulse 79 01/28/25 14:27 Resp 18 01/28/25 14:27 BP 160/60 H 01/28/25 14:27 Pulse Ox 97 01/28/25 14:27 Oxygen Delivery Method Room Air 01/28/25 14:27 BMI result Body Mass Index 22.5 Tobacco/Smoking Status: Tobacco use Status Tobacco use date assessed 01/28/25 01/28/25 14:01 Patient Tobacco Use Status Former Tobacco user 01/28/25 14:29 Tobacco use type Cigarette 01/28/25 14:01 e-Cigarette/Vaping Use Never Used 01/28/25 14:29 Coding Level of Care Code Est Pt Level 4 (12878) Complex visit Add On G2211 Diagnoses Hypertension I10 Left lower lobe pulmonary nodule R91.1 Assessment & Plan Assessment & Plan (1) Hypertension: Code(s): I10 - Essential (primary) hypertension Category: Medical Plan: Uncontrolled has been without her medication. Refilled amlodipine 10 mg and losartan 50 mg daily. She will check her blood pressures at home and reach out to the office should these be elevated above 140/90 (2) Left lower lobe pulmonary nodule: Comment: (irregular 6 mm nodule in LLL on 07/2024 LDCT - plan 6m repeat LDCT) Code(s): R91.1 - Solitary pulmonary nodule Category: Medical Plan: Advised to reach out to the lung cancer screening department to reschedule as she is overdue Plan Follow-up in the office in 6 months. Labs as below. Referred for colonoscopy, box order person exam, DEXA scan Orders: Orders Basic Metabolic Panel 01/28/25 E55.9 - Vitamin D deficiency, unspecified, I10 - Essential (primary) hypertension, Z87.891 - Personal history of nicotine dependence Complete Blood Count Auto Diff 01/28/25 E55.9 - Vitamin D deficiency, unspecified, I10 - Essential (primary) hypertension, Z87.891 - Personal history of nicotine dependence Lipid Panel 01/28/25 E55.9 - Vitamin D deficiency, unspecified, I10 - Essential (primary) hypertension, Z87.891 - Personal history of nicotine dependence Liver Panel 01/28/25 E55.9 - Vitamin D deficiency, unspecified, I10 - Essential (primary) hypertension, Z87.891 - Personal history of nicotine dependence Vitamin D 25-OH Total 01/28/25 E55.9 - Vitamin D deficiency, unspecified, I10 - Essential (primary) hypertension, Z87.891 - Personal history of nicotine dependence XR DEXA axial skeleton 01/28/25 M89.8X9 - Other specified disorders of bone, unspecified site, N95.1 - Menopausal and female climacteric states, Z87.891 - Personal history of nicotine dependence Referrals [employer] Referral Z12.4 - Encounter for screening for malignant neoplasm of cervix Gastroenterology Referral Z12.11 - Encounter for screening for malignant neoplasm of colon
[2025-01-28 14:27] VITALS: BP 160/60; PULSE 79; RESP 18; TEMP 36.8; O2SAT 97; BMI 22.5
== END 2025-01-28 15:00 | disposition home or self-care (01) ==
PROVIDERS: PCP Physician Assistant; Visit Provider Physician Assistant
DX: I10 Essential (primary) hypertension (principal); R91.1 Solitary pulmonary nodule

== ENCOUNTER 2025-02-07 07:35 | Outpatient (REF) | payer OTHER, SELFPAY ==
[2025-02-07 11:15] LABS: MANUAL DIFF FLAG NO
[2025-02-07 11:21] LABS: Hematocrit 40.2 % (37.0-47.0); Hemoglobin 13.0 g/dl (12.0-16.0); Imm Gran Abs Auto 0.02 X10*3/uL (0.00-0.03); Imm Gran Pct Auto 0.3 % (0.0-0.4); Lymphocytes Absolute Auto 2.5 X10*3/uL (1.2-4.9); Mean Corpuscular HGB Conc 32.3 g/dl (31.0-35.0); Mean Corpuscular Hemoglobin 29.4 pg (27.0-33.0); Mean Corpuscular Volume 91.0 fL (80.0-98.0); NRBC Abs Auto 0.000 X10*3/uL (0.0-0.012); NRBC Pct Auto 0.0 /100WBC (0.0-0.2); Platelet Count 339 X10*3/uL (160-400); Red Blood Count 4.42 X10*6/uL (4.20-5.50); White Blood Count 7.3 X10*3/uL (4.8-10.8)
[2025-02-07 11:41] LABS: Alanine Aminotransferase 11 U/L (0-31); Albumin Level 4.5 g/dL (3.5-5.0); Alkaline Phosphatase 61 U/L (39-117); Anion Gap 11 (12-20); Aspartate Amino Transferase 19 U/L (5-31); Blood Urea Nitrogen 11 mg/dL (9-16); Calcium 9.1 mg/dL (8.4-10.2); Carbon Dioxide 25 mmol/L (22-29); Chloride 109 mmol/L (96-108); Cholesterol 193 mg/dL (<200); Estimated Glomerular Filt Rate > 60; HDL Cholesterol 57 mg/dL (>40); Potassium 3.8 mmol/L (3.3-5.1); Sodium 141 mmol/L (135-145); Total Protein 7.1 g/dL (6.5-8.0); Triglycerides 132 mg/dL (<150)
== END 2025-02-07 07:36 | disposition home or self-care (01) ==
LOC: HO.HMGCLDS 07:35
PROVIDERS: PCP Physician Assistant; Visit Provider Physician Assistant
DX: I10 Essential (primary) hypertension (principal); E55.9 Vitamin D deficiency, unspecified; Z87.891 Personal history of nicotine dependence
CPT/HCPCS: 36415; 80048; 80061; 80076; 82306; 85025